=== PATIENT | male | born 1990 | race Caucasian/White ===

== ENCOUNTER 2017-09-16 10:18 | Emergency (ER) | payer BC, OTHER ==
[2017-09-16 11:01] VITALS: BP 134/72
[2017-09-16] MEDS ORDERED: Ondansetron ODT TAB* 4 MG PO ONE (11:16)
[2017-09-16] MEDS ORDERED: Ibuprofen TAB* 400 MG PO ONE (11:17)
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
--- NOTE | 2017-09-16 12:17 | RAD ---
Indication: Facial and head injury. 4 views of the skull demonstrates no fracture. The orbits are unremarkable. The mandible and paranasal sinuses are unremarkable. IMPRESSION: No fracture of the facial bones is identified.
== END 2017-09-16 12:26 | disposition home or self-care (01) ==
LOC: UCCORT 10:18
DX: S00.11XA Contusion of right eyelid and periocular area, initial encounter (principal); Z91.018 Allergy to other foods; W22.8XXA Striking against or struck by other objects, initial encounter; Y92.9 Unspecified place or not applicable
CPT/HCPCS: 70150; 99201; A9270-GY; G0463

== ENCOUNTER 2017-12-16 08:29 | Emergency (ER) | payer BC, OTHER ==
[2017-12-16 08:55] VITALS: BP 139/81
--- NOTE | 2017-12-16 09:51 | UC ---
Complaint Male HPI - HPI Summary HPI Summary: Pt presents to with 4 days of nausea, vomiting and diarrhea. Pt reports tactile fevers and chills. Patient states he has ongoing increasing abdominal pain. This is not relieved by diarrhea. No blood or black in the stool. No biliary sinus vomit. Patient has taken Tums for relief. Patient has not taken Imodium. Patient denies sick contacts. 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 Patient without other contacts at home. Patient's medications. Patient's without a history of gastrointestinal diagnoses no family history of same. Patient's has never had a colonoscopy. Pt's medications reviewed this visit - History of Current Complaint Chief Complaint: UCAbdominalPain Stated Complaint: STOMACH COMPLAINT/DIARRHEA Time Seen by Provider: 12/16/17 09:11 Hx Obtained From: Patient Timing: Constant Severity Initially: Mild Severity Currently: Mild Pain Intensity: 3 - Allergies/Home Medications Allergies/Adverse Reactions: Allergies Allergy/AdvReac Type Severity Reaction Status Date / Time pineapple Allergy Hives Verified 12/16/17 08:56 Home Medications: Home Medications Calcium Carbonate CHEW TAB* [Tums*] 1,000 mg PO Q4H PRN 12/16/17 [History Confirmed 12/16/17] PMH/Surg Hx/FS Hx/Imm Hx Previously Healthy: Yes - Surgical History Surgical History: Yes Surgery Procedure, Year, and Place: right inguinal lipoma 2013 - Family History Known Family History: Positive: Cardiac Disease, Other - no GI conditions - Social History Occupation: Employed Full-time Alcohol Use: None Substance Use Type: None Smoking Status (MU): Never Smoked Tobacco Have You Smoked in the Last Year: No Review of Systems Constitutional: Fever - tactile, Chills, Fatigue Gastrointestinal: Abdominal Pain, Vomiting, Diarrhea, Nausea All Other Systems Reviewed And Are Negative: Yes Physical Exam - Summary Physical Exam Summary: Vital Signs Reviewed: Yes A+Ox3, no distressull ENT: Hearing grossly normal TM x 2 clear, Eyes: Conjunctiva Clear, AURELIANO. EOM intact and mmmoist, uvula midline, no exudate , no erythema Neck: Positive: Supple Respiratory: Positive: No respiratory distress, No accessory muscle use + CTA throughout no w/r Cardiovascular: RRR nl s1, s2 no m/r CBT <2 sec abd soft + TTP RUQ, LLQ no guarding, no rebound decreased BS Musculoskeletal Exam: [place] x 4 without difficulty Strength Intact, ROM Intact Neurological: Positive: Alert, + sensation throughout Psychological: Positive: Normal Response To Family Skin: Positive: no rash, no ecchymosis Triage Information Reviewed: Yes Vital Signs: Initial Vital Signs Temp 97 F 12/16/17 08:43 Pulse 80 12/16/17 08:43 Resp 18 12/16/17 08:43 BP 139/81 12/16/17 08:43 Pulse Ox 99 12/16/17 08:43 Complaint Male Course/Dx - Course Course Of Treatment: Patient with progressive nausea vomiting and diarrhea for the last 4 days. Patient reports tactile temperatures. Patient did eat toast this morning but had diarrhea afterwards. On exam patient with tenderness left lower quadrant and right upper quadrant. Patient with decreased bowel sounds. Patient presents for 2 pain. Urinalysis shows bilirubin. Discussed with patient length guarding colitis/diverticulosis/and potential cholelithiasis. Recommend patient reemerged permit for further evaluation imaging. Patient in agreement with plan. Spoke to Dr. Glen Ribeiro emergency department. CT scan temporarily down. Patient notified and still adamant to go. Will discharge with recommendation to ED. - Differential Dx/Diagnosis Provider Diagnoses: abdominal pain Discharge - Sign-Out/Discharge Documenting (check all that apply): Patient Departure All imaging exams completed and their final reports reviewed: No - Discharge Plan Condition: Good Disposition: HOME-RECOMMEND TO ED Referrals: No Primary Care Phys,NOPCP [Primary Care Provider] - Additional Instructions: The doctor that evaluated you today thinks that you need additional testing that can be completed the emergency department. It is recommended that you go directly to emergency department for further evaluation. This evaluation may include blood work or imaging. This testing will be directed and decided by the provider that evaluate you at the emergency department. If pain becomes worse, you feel lightheaded, you have uncontrolled vomiting, or you have any other concerns while you are being driven to emergency department as recommended to pullover and contact 911. - Billing Disposition and Condition Condition: GOOD Disposition: Home-Recommend to ED
--- NOTE | 2017-12-16 10:22 | UC ---
Discharge - Sign-Out/Discharge Documenting (check all that apply): Post-Discharge Follow Up All imaging exams completed and their final reports reviewed: No Studies - Discharge Plan Condition: Good Disposition: HOME-RECOMMEND TO ED Referrals: No Primary Care Phys,NOPCP [Primary Care Provider] - Additional Instructions: The doctor that evaluated you today thinks that you need additional testing that can be completed the emergency department. It is recommended that you go directly to emergency department for further evaluation. This evaluation may include blood work or imaging. This testing will be directed and decided by the provider that evaluate you at the emergency department. If pain becomes worse, you feel lightheaded, you have uncontrolled vomiting, or you have any other concerns while you are being driven to emergency department as recommended to pullover and contact 911. - Billing Disposition and Condition Condition: GOOD Disposition: Home-Recommend to ED
== END 2017-12-16 09:55 | disposition home health service (06) ==
LOC: UCCORT 08:29
DX: R10.9 Unspecified abdominal pain (principal); Z91.018 Allergy to other foods
CPT/HCPCS: 81003; 99212; G0463

== ENCOUNTER 2018-04-14 16:20 | Emergency (ER) | payer BC, OTHER ==
--- OUTSIDE RECORDS SUMMARY | 2018-04-14 16:45 | XMS REPORT | Continuity of Care Document ---
:1990 External Reference #:[id number] Author Name Gee Henry MD Address [address] [place] [address] Care Team Providers Name Role Phone Messi Roth MD Care Team Information Forest Technician Unavailable Gee Henry MD Primary Care Physician Unavailable Payers Type Date Identification Numbers Payment Provider Subscriber Effective: Policy Number: [id number] Nelda Oconnor 2017 PayID: [id number] [address] [address] [place] [address] Advance Directives Description No Information Available Problems Date Description Provider Status Onset: 03/24/2018 Obesity Gee Henry MD Active Onset: 03/24/2018 Asthma without status asthmaticus Gee Henry MD Active Family History Description No Information Available Social History Type Date Description Comments Sex Unknown ETOH Use Denies alcohol use Tobacco Use Start: Unknown Patient denies history of smoking Smoking Status Reviewed: 03/24/18 Patient denies history of smoking Allergies, Adverse Reactions, Alerts Date Description Reaction Status Severity Comments 03/24/2018 NKDA Active 03/24/2018 Pineapple Active hives 03/24/2018 Bee Sting Active swelling Medications Medication Date Status Form Strength Qnty SIG Indications Ordering Provider Ventolin HFA Active Aerosol 108(90Base 1units 2 puffs inh J45.909 Sergio Henry ) mcg/Act every 4 MD Gee hours wheezing or difficulty breathing Immunizations CPT Code Status Date Vaccine Lot # [id number] Given 03/24/2018 Tdap injection [id number] Vital Signs Date Vital Result Comment 03/24/2018 3:49pm BP Systolic 118 mmHg BP Diastolic 66 mmHg Heart Rate 88 /min Respiratory Rate 18 /min Height 74 inches 6'2" Weight 316.25 lb BMI (Body Mass Index) 40.6 kg/m2 BSA (Body Surface Area) 2.64 m2 [place] body weight in kilograms 86 kg O2 % BldC Oximetry 98 % Ra Results Description No Information Available Procedures Description No Information Available Encounters Description No Information Available Plan of Treatment 03/24/2018 - Gee Henry MDZ13.6 Encounter for screening for cardiovascular disordersNew Labs:CBC W/Automated Diff, Ordered: 03/24/18Comprehensive Metabolic Panel, Ordered: 03/24/18LDL Cholesterol Profile, Ordered: Glycohemoglobin A1c, Ordered: 03/24/18T7/TSH, Ordered: 03/24/18Z00.01 Encounter for general adult medical examination with abnormal hkidlflqX10.1 Encounter for screening for respiratory tuberculosisImmunizations/Injections: PPDTdap aowtecerqA16.909 Unspecified asthma, uncomplicatedNew Medication: Ventolin HFA 108(90 Base) mcg/Act - 2 puffs inh every 4 hours wheezing or difficulty bcxoluaqwK07.9 Obesity, unspecified
[2018-04-14 16:49] VITALS: BP 135/61
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
[2018-04-14] MEDS ORDERED: Tenofovir/Emtricitab 200/300 * TAB PO ONE (17:30)
[2018-04-14] MEDS ORDERED: Raltegravir* 400 MG TAB PO ONE (17:31)
[2018-04-15 11:35] LABS: Hematocrit 41 % (42-52); Hemoglobin 13.8 g/dl (14.0-18.0); Mean Corpuscular HGB Conc 34 g/dl (31-36); Mean Corpuscular Hemoglobin 29 pg (27-31); Mean Corpuscular Volume 85 fL (80-94); Mean Platelet Volume 7.8 fL (7.4-10.4); Platelet Count 338 10^3/ul (150-450); Red Blood Count 4.75 10^6/ul (4.00-5.40); Red Cell Distribution Width 14 % (10.5-15); White Blood Count 8.3 10^3/ul (3.5-10.8)
[2018-04-15 11:42] LABS: Albumin 4.5 g/dL (3.2-5.2); Calcium 9.6 mg/dL (8.6-10.3); Potassium 4.1 mmol/L (3.5-5.0); Total Bilirubin 0.5 mg/dL (0.2-1.0)
[2018-04-15 11:48] LABS: Albumin/Globulin Ratio 1.7 (1-3); BUN/Creatinine Ratio 22.7 (8-20); EGFR African American 151.2 (>60); EGFR Non-African American 124.9 (>60); Globulin 2.7 g/dL (2-4); Total Protein 7.2 g/dL (6.4-8.9)
[2018-04-15 11:56] LABS: Rapid HIV 1 Nonreactive (Nonreactive)
[2018-04-15 12:42] LABS: ABS Basophils 0.1 10^3/ul (0-0.2); ABS Eosinophils 0.2 10^3/ul (0-0.6); ABS Lymphocytes 2.4 10^3/ul (1.0-4.8); ABS Monocytes 0.6 10^3/ul (0-0.8); ABS Neutrophils 5.1 10^3/ul (1.5-7.7); ABS Nucleated RBC 0 10^3/ul; Eosinophil % 1.9 %; Lymphocyte % 29.2 %; Nucleated Red Blood Cells % 0.2
[2018-04-15 12:47] LABS: Hepatitis B Surface Antigen Nonreactive (Nonreactive)
[2018-04-15 13:13] LABS: Hepatitis C Antibody Nonreactive (Nonreactive)
[2018-04-15 13:56] LABS: Hepatitis B Surface AB Immune (Immune)
== END 2018-04-14 18:05 | disposition home or self-care (01) ==
LOC: UCCORT 16:20
DX: S61.252A Open bite of right middle finger without damage to nail, initial encounter (principal); Z77.21 Contact with and (suspected) exposure to potentially hazardous body fluids; Z91.018 Allergy to other foods; Y04.0XXA Assault by unarmed brawl or fight, initial encounter; Y92.89 Other specified places as the place of occurrence of the external cause; Y99.0 Civilian activity done for income or pay
CPT/HCPCS: 36415; 80053; 85025; 86703; 86706; 86803; 87340; 99213; G0463

== ENCOUNTER 2018-06-30 16:29 | Emergency (ER) | payer BC, OTHER ==
[2018-06-30 17:32] VITALS: BP 143/71
--- NOTE | 2018-06-30 18:49 | UC ---
Throat Pain/Nasal Stan HPI - HPI Summary HPI Summary: Cold symptoms for approximately 9 days and now with sinus pressure, postnasal drainage, purulent nasal coryza. - History of Current Complaint Chief Complaint: UCRespiratory Stated Complaint: SINUS Time Seen by Provider: 06/30/18 17:40 Hx Obtained From: Patient Onset/Duration: Gradual Onset Severity: Mild Pain Intensity: 7 Pain Scale Used: 0-10 Numeric Cough: Nonproductive Associated Signs & Symptoms: Positive: Negative - Allergies/Home Medications Allergies/Adverse Reactions: Allergies Allergy/AdvReac Type Severity Reaction Status Date / Time pineapple Allergy Hives Verified 06/30/18 17:32 Home Medications: Home Medications Dm/Acetaminophen/Doxylamine [Vicks Nyquil Liquicaps] 2 each PO DAILY 06/30/18 [ History Confirmed 06/30/18] PMH/Surg Hx/FS Hx/Imm Hx Previously Healthy: Yes - Surgical History Surgical History: Yes Surgery Procedure, Year, and Place: right inguinal lipoma 2013 - Family History Known Family History: Positive: Cardiac Disease, Other - no GI conditions - Social History Alcohol Use: None Substance Use Type: None Smoking Status (MU): Never Smoked Tobacco Have You Smoked in the Last Year: No Review of Systems All Other Systems Reviewed And Are Negative: Yes ENT: Positive: Dental Pain - Patient states today his upper teeth started hurting., Nasal Discharge, Sinus Congestion, Sinus Pain/Tenderness Respiratory: Positive: Cough - Nonproductive cough. Is Patient Immunocompromised?: No Physical Exam Triage Information Reviewed: Yes Appearance: Well-Appearing, No Pain Distress, Well-Nourished Vital Signs: Initial Vital Signs Temp 97.5 F 06/30/18 17:28 Pulse 66 06/30/18 17:28 Resp 18 06/30/18 17:28 BP 143/71 06/30/18 17:28 Pulse Ox 100 06/30/18 17:28 Vital Signs Reviewed: Yes Eyes: Positive: Conjunctiva Clear ENT: Positive: Hearing grossly normal, Pharynx normal, Nasal congestion, Nasal drainage - Yellow nasal coryza, yellow postnasal drainage., Sinus tenderness, Uvula midline Neck: Positive: Supple, Nontender, No Lymphadenopathy Respiratory: Positive: Lungs clear, Normal breath sounds, No respiratory distress, No accessory muscle use Cardiovascular: Positive: RRR, No Murmur, Pulses Normal, Brisk Capillary Refill Musculoskeletal Exam: Normal Neurological Exam: Normal Psychological Exam: Normal Skin Exam: Normal Throat Pain/Nasal Course/Dx - Course Course Of Treatment: He is comfortable here I'm going to treat him for a sinus infection. - Differential Dx/Diagnosis Provider Diagnosis: Sinusitis Discharge - Sign-Out/Discharge Documenting (check all that apply): Patient Departure All imaging exams completed and their final reports reviewed: No Studies - Discharge Plan Condition: Fair Disposition: HOME Prescriptions: Amoxicillin PO (*) [Amoxicillin 875 MG (*)] 875 mg PO BID 10 Days #20 tab Patient Education Materials: Sinusitis (ED) Referrals: Gee Henry MD [Primary Care Provider] - Additional Instructions: Increase fluids, continue your [id number]-nhx-dnibarx medications, follow-up with your primary care provider if no improvement in 3 or 4 days. - Billing Disposition and Condition Condition: FAIR Disposition: Home
== END 2018-06-30 18:06 | disposition home or self-care (01) ==
LOC: UCCORT 16:29
DX: J32.9 Chronic sinusitis, unspecified (principal); R09.82 Postnasal drip; J00 Acute nasopharyngitis [common cold]; Z91.018 Allergy to other foods
CPT/HCPCS: 99212; G0463

== ENCOUNTER 2018-12-23 15:03 | Emergency (ER) | payer BC, OTHER ==
[2018-12-23 15:50] VITALS: BP 151/71
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
== END 2018-12-23 17:47 | disposition home or self-care (01) ==
LOC: UCCORT 15:03
DX: S89.91XA Unspecified injury of right lower leg, initial encounter (principal); Z91.018 Allergy to other foods; X58.XXXA Exposure to other specified factors, initial encounter; Y92.218 Other school as the place of occurrence of the external cause
CPT/HCPCS: 99212; G0463